=== PATIENT | male | born 1990 | race Caucasian/White ===

== ENCOUNTER → 2019-03-20 | Outpatient (CLI) | payer OTHER ==
--- NOTE | 2019-03-20 08:14 | MR ---
EXAMINATION TYPE: MR knee LT wo con DATE OF EXAM: 03/20/2019 7:36 AM COMPARISON: NONE HISTORY: Left knee pain TECHNIQUE: Multiplanar, multiecho imaging of the left knee is performed without IV contrast. FINDINGS: There is a moderate, complex knee joint effusion. There is also some prepatellar fluid. The re is no significant chondromalacia. Both menisci appear intact. There is moderate bone bruising involving the lateral metaphysis and epiphysis of the lateral femoral condyle. There is also some bone bruising involving the lateral femoral condyle. Both the anterior and posterior cruciate ligaments are intact. The medial and lateral collateral liga ment complexes are intact. Iliotibial band inserts normally upon Gerdy's tubercle. The popliteus musc le and tendon appear normal. There is mild edematous change involving the fibular collateral ligament . The ligament, however, is intact. Both the quadriceps and patellar tendons are intact. IMPRESSION: 1. MODERATE BONE BRUISING DESCRIBED INVOLVING THE LATERAL FEMORAL CONDYLE AND LATERAL TIBIAL PLATE AU. 2. NO SIGNIFICANT LIGAMENTOUS OR MENISCAL ABNORMALITY. 3. MODERATE JOINT EFFUSION WITH CONCOMITANT PREPATELLAR FLUID.
== END | disposition home or self-care (01) ==
LOC: RADMRIMAIN 07:03
PROVIDERS: ATTEND Nurse Practitioner Acute Care
DX: S80.02XA Contusion of left knee, initial encounter (principal); M25.462 Effusion, left knee